=== PATIENT | female | born 1980 | race Caucasian/White ===

== ENCOUNTER 2017-02-05 03:33 | Day surgery (SDC) | payer BC, OTHER ==
[2017-02-05] MEDS ORDERED: IOPAMIDOL 370 (76%) 100 ML VIAL IV ONE (03:34)
[2017-02-05] MEDS ORDERED: ONDANSETRON 4 MG/2ML 2 ML VIAL ONE ×2 (04:03→12:25)
[2017-02-05] MEDS ORDERED: MORPHINE SULFATE 4 MG/ML SYRINGE ONE ×3 (04:03→05:51)
[2017-02-05 04:12] LABS: SPECIFIC GRAVITY 1.025 (1.001-1.030); URINE BILIRUBIN NEGATIVE (NEGATIVE); URINE BLOOD NEGATIVE (NEGATIVE); URINE GLUCOSE (UA) NEGATIVE (NEGATIVE); URINE LEUKOCYTE ESTERASE TRACE (NEGATIVE); URINE NITRITE NEGATIVE (NEGATIVE); URINE PROTEIN NEGATIVE (NEGATIVE); URINE UROBILINOGEN NORMAL (0-1 mg/dl)
[2017-02-05 04:16] LABS: URINE APPEARANCE CLEAR; URINE COLOR YELLOW
[2017-02-05 04:17] LABS: HCG,QUALITATIVE URINE NEGATIVE
[2017-02-05 04:20] LABS: ABSOLUTE NEUTROPHIL COUNT 9.1 K/mm3 (1.8-7.7); BASO % 0.3 % (0.2-1.0); EOS # 0.2 (0.0-0.5); EOS % 1.6 % (0.9-2.9); HEMATOCRIT 41.8 % (37.0-47.0); IMM NEUT # 0.1 K/mm3 (0-0.2); IMM NEUT% 0.4 % (0-1); LYMPH # 2.6 (1.0-4.8); LYMPH % 19.7 % (15-45); MEAN CELL VOLUME 85.5 fl (81.0-99.0); MEAN CORPUSCULAR HEMOGLOBIN 28.6 pg (27.0-31.0); MEAN CORPUSCULAR HGB CONC 33.5 g/dl (33.0-37.0); MEAN PLATELET VOLUME 10.2 fl (7.4-10.4); MONO % 7.7 % (4-12); NEUT % 70.3 % (43-75); PLATELET COUNT 260 K/mm3 (130-400); RED CELL DISTRIBUTION WIDTH 12.7 % (11.5-14.5)
[2017-02-05 04:27] LABS: URINE BACTERIA 0; URINE RBC 0-2 /hpf
[2017-02-05] MEDS ORDERED: PIPERACILLIN-TAZO PREMIX BAG 50 ML IV ONE (04:58)
[2017-02-05] MEDS ORDERED: SODIUM CHLORIDE 0.9% 1,000 ML ONE (04:58)
[2017-02-05 05:16] LABS: ALB/GLOB RATIO 1.6 (>1.0); ALBUMIN 4.5 gm/dL (3.5-5.7); CALCIUM 9.3 mg/dL (8.6-10.3)
[2017-02-05] MEDS ORDERED: MORPHINE SULFATE 2 MG/ML SYRINGE ONE (05:51)
[2017-02-05 06:44] VITALS: BMI 31.1
[2017-02-05] MEDS ORDERED: MENTHOL/CETYLPYRD 1 EACH LOZENGE PO PRN (07:04)
[2017-02-05] MEDS ORDERED: ONDANSETRON 4 MG/2ML 2 ML VIAL IV PRN ×2 (07:04→12:33)
[2017-02-05] MEDS ORDERED: OXYCODONE HCL 5 MG TABLET PO PRN (07:04)
[2017-02-05] MEDS ORDERED: ACETAMINOPHEN 325 MG TABLET PO PRN ×2 (07:04→14:08)
[2017-02-05] MEDS ORDERED: KETOROLAC TROMETHAMINE 30 MG/ML 1 ML VIAL IV PRN (07:04)
[2017-02-05] MEDS ORDERED: HYDROMORPHONE HCL 1 MG/ML SYRINGE IV PRN ×3 (07:04→14:08)
[2017-02-05] MEDS ORDERED: SODIUM CHLORIDE 0.9% 1,000 ML IV ONE (07:04)
[2017-02-05] MEDS ORDERED: BLISTEX LIPSTICK 1 EACH TP PRN (07:04)
[2017-02-05] MEDS ORDERED: D5 1/2NS 1,000 ML IV SCH (07:15)
[2017-02-05] MEDS ORDERED: HYDROMORPHONE HCL 0.5 MG/0.5 ML SYRINGE IV PRN ×2 (07:22→14:20)
[2017-02-05] MEDS ORDERED: PUMP TUBING ONE (07:26)
[2017-02-05] MEDS ORDERED: PRENATAL VIT/FE FUMARATE/FA 1 TABLET PO SCH (09:00)
--- NOTE | 2017-02-05 10:52 | CT ---
ABD/PELVIS W/ CON COMPARISON: None. HISTORY: 36-year-old female with right abdominal pain for one day. No injury. Technique: No oral contrast. Intravenous injection contrast 100 mL Isovue 370. Using a [employer] Aquilion [address] scanner, images were obtained from the diaphragm to the floor the pelvis. An automated dose reduction technique was used to minimize patient radiation dose. Dose information: CTDIvol (mGy): 10.10 DLP(mGycm): 472.40 FINDINGS: Lung bases: Normal. Inferior mediastinum and heart: Normal. Liver: Normal. Gallbladder: Removed. Bile ducts: Normal. Pancreas: Normal. Spleen: Normal. Adrenal glands: Normal. Kidneys: Normal. Ureters: Normal Urinary bladder: Normal. Uterus and adnexa: Intrauterine device, with one arm penetrating the myometrium. Blood vessels: Normal Lymph nodes: Normal Stomach: Normal Duodenum: Normal Small intestine: Normal Appendix: The appendix is distended and contains appendicoliths. There is adjacent inflammatory stranding. Colon: Normal Abdominal wall and supporting musculature: Small fat-containing umbilical hernia. Bones: Normal IMPRESSION: 1. Acute appendicitis. 2. Intrauterine device, with one arm penetrating the myometrium. 3. Cholecystectomy. 4. Small fat-containing umbilical hernia. Preliminary report by [facility] radiologist Joe Echavarria M.D. 02/05/2017 at 05:31
[2017-02-05] MEDS ORDERED: PIPERACILLIN-TAZO PREMIX BAG 3.375 G in Premix (D5W) 50 ml 1 EACH IV SCH (11:00)
[2017-02-05] MEDS ORDERED: LACTATED RINGERS 1,000 ML ONE (11:21)
[2017-02-05] MEDS ORDERED: BUPIVACAINE 0.5% (PRES FREE) 30 ML VIAL ONE (11:34)
[2017-02-05] MEDS ORDERED: LIDOCAINE 1%/EPI 1:100,000 (MULTI DOSE) 30 ML VIAL ONE (11:34)
[2017-02-05] MEDS ORDERED: MIDAZOLAM HCL 5 MG/5 ML VIAL ONE (11:40)
[2017-02-05] MEDS ORDERED: ROCURONIUM BROMIDE 10 MG/ML DOSE IV ONE (11:40)
[2017-02-05] MEDS ORDERED: PROPOFOL 20 ML IV ONE (11:40)
[2017-02-05] MEDS ORDERED: FENTANYL 250 MCG/5 ML AMP ONE (11:40)
[2017-02-05] MEDS ORDERED: DEXAMETHASONE SOD PHOS 4 MG/1 ML VIAL ONE (12:25)
[2017-02-05] MEDS ORDERED: FENTANYL 100 MCG/2 ML VIAL IV PRN (12:33)
[2017-02-05] MEDS ORDERED: NALOXONE HCL 0.4 MG/ML VIAL IV PRN (12:33)
[2017-02-05] MEDS ORDERED: PROMETHAZINE HCL 25 MG/ML VIAL IM PRN (12:33)
[2017-02-05] MEDS ORDERED: ATROPINE SULFATE 0.4 MG/1 ML VIAL IV PRN (12:33)
[2017-02-05] MEDS ORDERED: Heparin Sodium 5000 unit/0.5ml syringe SUB-Q PRN (12:43)
[2017-02-05] MEDS ORDERED: LACTATED RINGERS 1,000 ML IV SCH (12:45)
[2017-02-05] MEDS ORDERED: NEOSTIGMINE METHYLSULFATE 1 MG/ML DOSE ONE (12:48)
[2017-02-05] MEDS ORDERED: GLYCOPYRROLATE 0.2 MG/ML 1ML VIAL ONE (12:48)
[2017-02-05] MEDS ORDERED: KETOROLAC TROMETHAMINE 30 MG/ML 1 ML VIAL ONE (12:59)
--- NOTE | 2017-02-05 13:38 | PCMON ---
Date of Procedure: 02/05/17 Start Time: 12:30 pm PREOPERATIVE DIAGNOSIS Acute appendicitis. POSTOPERATIVE DIAGNOSIS Acute appendicitis with micro-perforation. PROCEDURE PERFORMED Laparoscopic appendectomy. COMPLICATIONS None. OPERATIVE FINDINGS Acute appendicitis micro-perforation and purulent material in RLQ ESTIMATED BLOOD LOSS 30 ml BRIEF INDICATIONS TONY AL is a 36 year old F patient that was admitted with symptoms of acute appendicitis. The preoperative CBC revealed a elevated WBC, physical examination demonstrated RLQ abdominal tenderness, and CT scan supported the diagnosis of acute appendicitis. Risks and benefits of surgery were explained to the patient, including the risk of bowel resection, stoma creation and the possible need for conversion to open technique. The patient declined the possible alternatives and agreed to proceed with surgery, providing informed consent. DESCRIPTION OF PROCEDURE The patient was brought to the operating room and placed supine on the operating room table. A surgical briefing was held to verify the correct patient and correct procedure. A general anesthetic was induced uneventfully, followed by the administration of a subcutaneous heparin injection and perioperative antibiotics. Pneumatic compression stockings were placed on the legs and powered on. The abdomen was prepped and draped in a sterile fashion. A 5-mm direct optical view trocar was used to enter the left lower quadrant under direct vision of the abdominal wall layers. Once inside the abdominal cavity, a pneumoperitoneum was created. No injury to underlying structures occurred with placement of this trocar. Once inside the abdominal cavity, an additional 12-mm port was placed periumbilically in the midline. An additional 5-mm port was placed in the midline just above the pubis. All trocars were placed under direct visualization. There was no injury to underlying structures with placement of these trocars. The patient was placed in Trendelenburg position with the right side up. The appendix was visualized at the base of the cecum. The appendix was mobilized allowing identification of the mesoappendix and the base of the appendix. The cecum was not involved by the appendiceal inflammation. A window was created at the base between the appendix and the mesoappendix, and the appendix was then amputated at its base with a blue load Endo CARLIN stapler. The mesentery of the appendix was then divided with a vascular load of the Endo CARLIN stapler. The appendix was then removed through the 12-mm midline port using an Endocatch bag. The staple lines were evaluated for hemostasis; no hemorrhage was identified. The RLQ was irrigated with warm saline. The left lower quadrant and suprapubic ports were removed under direct laparoscopic vision, and the incisions were hemostatic. The pneumoperitoneum was then evacuated. The fascia of the 12-mm port was closed with 0 Vicryl. All of the ports and instruments were removed. The skin was closed with 4-0 absorbable subcuticular sutures. Steri-Strips were placed over the incisions and sterile dressings applied. The needle and sponge counts were correct x2 at the completion of the procedure. The patient had no apparent intraoperative complication identified.
[2017-02-05] MEDS ORDERED: FENTANYL 100 MCG/2 ML VIAL ONE (13:40)
[2017-02-05] MEDS: D5 1/2NS with 20 mEq KCL 1,000 ML IV SCH (14:25)
[2017-02-05] MEDS: ONDANSETRON 4 MG/2ML 2 ML VIAL IV PRN ×2 (14:26→21:52)
[2017-02-05] MEDS ORDERED: AMOX 875 MG/CLAV 125 MG 1 EACH TABLET PO SCH ×2 (16:32→21:00)
[2017-02-05] MEDS: KETOROLAC TROMETHAMINE 30 MG/ML 1 ML VIAL IV PRN ×2 (16:50→22:52)
[2017-02-05] MEDS: OXYCODONE HCL 5 MG TABLET PO PRN ×2 (17:15→20:52)
[2017-02-05] MEDS: AMOX 875 MG/CLAV 125 MG 1 EACH TABLET PO SCH ×2 (20:24→20:52)
[2017-02-05] MEDS: Heparin Sodium 5000 unit/0.5ml syringe SUB-Q SCH (20:53)
[2017-02-05] MEDS ORDERED: DIPHENHYDRAMINE HCL 25 MG CAPSULE PO PRN (23:31)
[2017-02-06] MEDS: OXYCODONE HCL 5 MG TABLET PO PRN ×3 (00:14→10:55)
[2017-02-06] MEDS: D5 1/2NS with 20 mEq KCL 1,000 ML IV SCH (04:37)
[2017-02-06] MEDS ORDERED: Heparin Sodium 5000 unit/0.5ml syringe SUB-Q SCH (05:06)
[2017-02-06] MEDS: AMOX 875 MG/CLAV 125 MG 1 EACH TABLET PO SCH (07:10)
--- NOTE | 2017-02-06 08:39 | HP ---
TONY VERSA DATE OF ADMISSION: February 05, 2017 HISTORY OF PRESENT ILLNESS: Ms. Veras is a very pleasant 36-year-old female with symptoms consistent with acute appendicitis. Ms. Veras is a relatively healthy individual. She has had some issues with some hypertension in the past especially with her previous . She, approximately nine months ago, underwent a cholecystectomy for cholelithiasis at the end of her third trimester of . She is otherwise healthy although she does relate some chronic mid epigastric abdominal pain that has continued after her cholecystectomy. Ms. Veras states that over the last 24 hours, she has had increasing abdominal pain. As mentioned previously, she has had previous chronic abdominal pain. Initially this pain started off in a similar fashion but continued to intensify and localize to the right lower quadrant. When she was unable to sleep due to the pain, she presented to the [facility] Emergency Department. PHYSICAL EXAMINATION: In the emergency department, Ms. Veras is her stated age. Her abdomen is soft with tenderness in the right lower quadrant. It is slightly higher than McBurney's point but is localized peritonitis with no evidence of diffuse peritonitis. The remaining portion of her abdominal exam is unremarkable. She is nontoxic and appears well. Her cardiovascular exam is normal with normal heart sounds, no murmurs. Lung evaluation demonstrates air entry bilaterally with no concerns. LABORATORY: Laboratory results reveal a slight elevation in her BUN/creatinine ratio demonstrating dehydration and white cell count of 13 with a left shift and increase of absolute neutrophils. DIAGNOSTIC IMAGING: She underwent a CAT scan which reveals as previously mentioned, cholecystectomy clips in the right upper quadrant. She has inflammation in the right lower quadrant and what appears to be a fecalith with inflamed appendix representing an acute appendicitis. There does appear to be a little bit of free fluid in the area and some inflammation around the area of the appendix suggesting this may be a chronic process as opposed to a completely acute appendicitis. The appendix is in a retrocecal position which I think is the reason her abdominal pain is in the slightly higher than usual position. ASSESSMENT: Based on Ms. Veras's history of localizing right lower quadrant abdominal pain, her physical exam which demonstrates a pain in the region slightly above McBurney's point, elevated white cell count and CAT scan revealing symptoms consistent with acute appendicitis, I recommended that Ms. Veras undergo a laparoscopic appendectomy with possible conversion to open procedure. I did discuss that the main concerns with right lower quadrant pain outside of appendicitis would include female organs. Ms. Veras certainly has some issues with ovarian cyst type pain but this does not appear to be similar in nature. I also discussed the possibility of Crohn's disease masking as appendicitis. Ms. Veras has an aunt with Crohn's disease but has really had no history of symptoms consistent with Crohn's in her personal life. PLAN: I reviewed the risks and benefits of general surgery which included but were not limited to deep venous thrombosis, myocardial infarction, pulmonary embolism, wound infection, urinary tract infection, kidney failure, respiratory failure, reaction to anesthetic, hernia. I specifically discussed the main complications associated with appendectomy specifically. I discussed the potential need to convert to an open procedure. I also discussed leak from a staple line or a postoperative bleed. I also discussed again the issue with Crohn's disease or gynecological pathology masking as appendicitis and the need to treat those diseaseS in an appropriate fashion. Based on this discussion, evaluating the risks, benefits, and alternatives, Ms. Veras wished to proceed with laparoscopic appendectomy. I will plan for a laparoscopic procedure at the operating room's earliest convenience.
[2017-02-06] MEDS: Heparin Sodium 5000 unit/0.5ml syringe SUB-Q SCH (09:01)
[2017-02-06 11:40] VITALS: BP 142/92
[2017-02-06] MEDS ORDERED: ONDANSETRON 4 MG ODT TAB PO PRN (12:50)
--- NOTE | 2017-02-08 13:52 | SURGPATH ---
[facility] [address] [place] [id number] Patient Name: TONY AL MR#: [id number] : 1980 Gender: F Specimen #: [id number] Collected: 02/05/2017 Received: 02/07/2017 Reported: 02/08/2017 Submitting Phys: MONICA HILL Copy To Phys: [facility] Clinical History / Pre-Operative Diagnosis: Acute appendicitis Specimen Source / Surgical Procedure Performed: Appendix Interpretation: APPENDIX, APPENDECTOMY: - MARKED ACUTE APPENDICITIS AND PERIAPPENDICITIS. - NO EVIDENCE OF MALIGNANCY. Electronically Signed Out Michelet Bowles M.D., Ph.D. Gross Description: The specimen is received in formalin labeled with the patient's name and "appendix". The specimen consists of a 6.0 x 1.0 x 1.0 cm vermiform appendix with attached mesoappendix. The base is stapled. The serosa is slightly dusky or dull and ragged. The mucosa is minimally hemorrhagic. The lumen is 50% filled with semifirm non-calcified fecal matter. A distinct perforation is not identifiable. 1A medical customer service representative, base and tip MOHIT Dugan Microscopic Description: Examination of multiple sections from the appendix shows appendix with a marked acute inflammatory cell infiltrate extending from the lumen through the wall of the appendix into the periappendiceal soft tissue. There is no evidence of malignancy. 1: [id number] K35.80
== END 2017-02-06 14:00 | disposition home or self-care (01) ==
LOC: ED 03:33 → ICU 05:36 → SDC 05:36 → MS 18:56 → SDC 02-06 14:00
PROVIDERS: ATTEND Surgery
PROC: 0DTJ4ZZ Resection of Appendix, Percutaneous Endoscopic Approach (ICD-10-PCS; principal; 2017-02-05)
DX: K35.2 Acute appendicitis with generalized peritonitis (principal); Z83.79 Family history of other diseases of the digestive system
CPT/HCPCS: 44970; 83690; 81025; 85025; 87040 ×2; 80053; 81001; 74177; 96375 ×2; 96376; 99284 ×2; 96361; 96365; 36415; A9270 ×8; J3010 ×2; J1644 ×3; J1100; J2270 ×4; J1885 ×4; J2250; J2001; J2405 ×5; J2543 ×2; J7042; J7120; J7030 ×2; Q9967; J1170